=== PATIENT | male | born 1955 | race Caucasian/White ===

== ENCOUNTER 2018-01-27 07:54 | Outpatient (RCR) | payer OTHER | END 2018-04-27 | disposition home or self-care (01) | LOC: ONC 07:54 | PROVIDERS: ATTEND Radiology Radiation Oncology | DX: C61 Malignant neoplasm of prostate (principal) | CPT/HCPCS: 76873; 99205 ==

== ENCOUNTER 2018-06-20 09:43 | Outpatient (CLI) | payer OTHER ==
[~2018-06-20] VITALS: Ht 177.8 cm; Wt 162.4 kg
[2018-06-20] MEDS ORDERED: AMLO5TAB2 PO (09:57)
[2018-06-28] MEDS ORDERED: ACET1TAB43 PO (12:13)
[2018-06-28] MEDS ORDERED: CIPR-226 PO (12:13)
== END 2018-06-20 10:34 | disposition home or self-care (01) ==
LOC: PREOP 09:43
PROVIDERS: ATTEND Radiology Radiation Oncology
DX: Z01.818 Encounter for other preprocedural examination (principal)
CPT/HCPCS: 87081

== ENCOUNTER 2018-06-28 11:47 | Day surgery (SDC) | payer OTHER, MEDICARE ==
[~2018-06-28] VITALS: Ht 177.8 cm; Wt 162.4 kg
[~2018-06-28 11:47] MED LIST: AMLO5TAB2 PO; MEPERIDINE (DEMEROL) INJ 50 MG/ML IVP PRN; ONDANSETRON 4 MG/2 ML (SDV) Z0FRAN IVP PRN; morphine INJ 10 MG/ML 1ML (SYR OR VIAL) IVP PRN
[2018-06-28 11:48] VITALS: BP 118/67
[2018-06-28] MEDS ORDERED: LACTATED RINGERS 1,000 ML IV PRN (11:58)
[2018-06-28] MEDS ORDERED: LEVOFLOXACIN 500 MG/100 ML IV 100 ML IV ONE (12:00)
--- NOTE | 2018-06-28 12:10 | Progress Note-Pre Operative ---
Pre-Operative Progress Note H&P Reviewed The H&P was reviewed, patient examined and no changes noted. Date Seen by Provider: Jun 28, 2018 Time Seen by Provider: 12:09 Date H&P Reviewed: Jun 28, 2018 Time H&P Reviewed: 12:09 Pre-Operative Diagnosis: cT1c, PSA 4.46, [place] 7 (3+4) Prostate Cancer SAMEER ACOSTA MD Jun 28, 2018 12:10
[2018-06-28] MEDS ORDERED: CIPR-226 PO (12:13)
[2018-06-28] MEDS ORDERED: ACET1TAB43 PO (12:13)
[2018-06-28] MEDS ORDERED: CATHETER FLUSH 10 ML SYR IV PRN (12:15)
--- NOTE | 2018-06-28 12:17 | Discharge Inst-Simple/Standard ---
Discharge Inst-Standard Discharge Medications New, Converted or Re-Newed RX: RX Given to Pt/Family Patient Instructions/Follow Up Plan of Care/Instructions/FU: 1) [facility] 07/27/18 at 10:00 a.m. 2) Follow up with Dr. Thomas 07/31/18 at 3:15 p.m. Activity as Tolerated: Yes Discharge Diet: No Restrictions Other Inst to Patient Patient wants catheter removed at Dr. Thomas's office. Confirm with Dr. Thomas for morning of Saturday 06/30 or Tuesday 07/03. Call and set up appt . SAMEER ACOSTA MD Jun 28, 2018 12:17
[2018-06-28] MEDS ORDERED: ASPI-586 PO (14:04)
[2018-06-28] MEDS ORDERED: AMLO-119 PO (14:04)
[2018-06-28] MEDS ORDERED: DEXAMETHASONE 10 MG/ML (DECADRON) 1 ML VIAL ONE (14:37)
[2018-06-28] MEDS ORDERED: MIDAZOLAM 2 MG/2 ML (VERSED) VIAL ONE (14:37)
[2018-06-28] MEDS ORDERED: LIDOCAINE PF 2% 5 ML (XYLOCAINE) VIAL ONE (14:37)
[2018-06-28] MEDS ORDERED: ROCURONIUM 10 MG/ML 5 ML SYRINGE IV ONE (14:37)
[2018-06-28] MEDS ORDERED: ONDANSETRON 4 MG/2 ML (SDV) Z0FRAN ONE (14:37)
[2018-06-28] MEDS ORDERED: proPOfol 200 MG/20 ML (DIPRIVAN) VIAL IV ONE (14:37)
[2018-06-28] MEDS ORDERED: fentaNYL INJECTION 100 MCG/2 ML AMP ONE ×2 (14:38→15:35)
[2018-06-28] MEDS ORDERED: SEVOFLURANE (ULTANE) 15 ML INHAL SOLN ONE ×3 (15:17→16:34)
[2018-06-28] MEDS ORDERED: GLYCOPYRROLATE 0.2 MG/ML (ROBINUL) 2 ML VIAL ONE (15:37)
[2018-06-28] MEDS ORDERED: NEOSTIGMINE 1 MG/ML 5 ML SYRINGE ONE (15:37)
[2018-06-28] MEDS ORDERED: morphine INJ 10 MG/ML 1ML (SYR OR VIAL) ONE (16:37)
[2018-06-28] MEDS: morphine INJ 10 MG/ML 1ML (SYR OR VIAL) IVP PRN ×2 (16:40→16:44)
[2018-06-28] MEDS ORDERED: ONDANSETRON 4 MG/2 ML (SDV) Z0FRAN IVP PRN (16:45)
[2018-06-28] MEDS ORDERED: MEPERIDINE (DEMEROL) INJ 50 MG/ML IVP PRN (16:45)
--- NOTE | 2018-06-28 16:52 | Progress Note-Post Operative ---
Post-Operative Progess Note Surgeon (s)/Standpipe Tender (s) Surgeon SAMEER ACOSTA MD Standpipe Tender: Ally DUMAS MD Pre-Operative Diagnosis cT1c, PSA 4.46, [place] 7 (3+4) Prostate Cancer Post-Operative Diagnosis Same as pre-op Procedure & Operative Findings Date of Procedure 06/28/18 Procedure Performed/Findings 100% Cesium 131 permanent prostate seed implant; Insertion of biodegradable hydrogel prostate rectal spacer utilizing the SpaceOAR system; cystogram Prostate gland volume 46 cc Anesthesia Type General Estimated Blood Loss Estimated blood loss (mL): Minimal Specimens/Packing Specimens Removed None Packing: None SAMEER ACOSTA MD Jun 28, 2018 16:52
[2018-06-28 17:10] VITALS: BP 113/59
--- NOTE | 2018-06-28 17:11 | Anesthesia-General Post-Op ---
General Patient Condition Mental Status/LOC: Same as Preop Cardiovascular: Satisfactory Nausea/Vomiting: Absent Respiratory: Satisfactory Pain: Controlled Complications: Absent Post Op Complications Complications None Follow Up Care/Instructions Patient Instructions None needed. Anesthesia/Patient Condition Patient Condition Patient is doing well, no complaints, stable vital signs, no apparent adverse anesthesia problems. No complications reported per nursing. [place] [facility] [place] No AFUA MARS CRNA Jun 28, 2018 17:11
[2018-06-28 17:45] VITALS: BP 110/62
[2018-06-28 18:15] VITALS: BP 116/66
[2018-06-28 18:25] VITALS: BP 116/66
--- NOTE | 2018-06-28 20:25 | Diagnostic Imaging Report ---
INDICATION: Brachytherapy. EXAMINATION: Fluoroscopic assistance was provided for Dr. Mikhail Medina. 18.4 seconds of fluoroscopy time was utilized. A single spot film of the pelvis was obtained. FINDINGS: There are numerous radiopaque seed implants overlying the prostate gland. There is also a [place] catheter within the bladder and there is partial opacification of the bladder by contrast. IMPRESSION: Fluoroscopic assistance was provided for Dr. Medina. Dictated by: Dictated on workstation # [id number]
== END 2018-06-28 18:25 | disposition home or self-care (01) ==
LOC: SDC 11:47
PROVIDERS: ATTEND Radiology Radiation Oncology
DX: C61 Malignant neoplasm of prostate (principal); I10 Essential (primary) hypertension; G47.33 Obstructive sleep apnea (adult) (pediatric); F17.220 Nicotine dependence, chewing tobacco, uncomplicated; E66.01 Morbid (severe) obesity due to excess calories; Z68.43 Body mass index [BMI] 50.0-59.9, adult; Z79.82 Long term (current) use of aspirin
CPT/HCPCS: 76965; 77290; 77318; 77370; 77470; 77778

== ENCOUNTER 2018-07-27 09:42 | Outpatient (RCR) | payer OTHER ==
[~2018-07-27 09:42] MED LIST changes: +ACET1TAB43 PO; +AMLO-119 PO; -AMLO5TAB2 PO; +AMLO5TAB7 PO; +ASPI-586 PO; +CIPR-226 PO; -MEPERIDINE (DEMEROL) INJ 50 MG/ML IVP PRN; -ONDANSETRON 4 MG/2 ML (SDV) Z0FRAN IVP PRN; -morphine INJ 10 MG/ML 1ML (SYR OR VIAL) IVP PRN
== END 2018-07-31 | disposition home or self-care (01) ==
LOC: ONC 09:42
PROVIDERS: ATTEND Radiology Radiation Oncology
DX: Z51.0 Encounter for antineoplastic radiation therapy (principal); C61 Malignant neoplasm of prostate
CPT/HCPCS: 76873; 77290; 77331

== ENCOUNTER 2019-01-09 12:39 | Outpatient (RCR) | payer OTHER ==
[~2019-01-09 12:39] MED LIST changes: -AMLO5TAB7 PO; +AMLO5TAB9 PO
== END 2019-04-09 | disposition home or self-care (01) ==
LOC: ONC 12:39
PROVIDERS: ATTEND Radiology Radiation Oncology
DX: C61 Malignant neoplasm of prostate (principal)
CPT/HCPCS: 36415; 84153; 99213